=== PATIENT | female | born 1970 | race Caucasian/White ===

== ENCOUNTER 2016-09-10 09:02 | Emergency (ER) | payer BC, OTHER ==
[~2016-09-10] VITALS: Ht 162.6 cm; Wt 68.0 kg
[~2016-09-10 09:02] MED LIST: ASPI-266 PO; FAMO20TA5 PO; HYDR-3720 PO; IBP800T PO; METO-272 PO; OMEP20TA2 PO
--- OUTSIDE RECORDS SUMMARY | 2016-09-10 09:09 | XMS REPORT | Continuity of Care Document ---
Author Author [facility] Organization [facility] Address Unknown Phone Unavailable Allergies Active Description Code Type Severity Reaction Onset Reported/Identified Relationship to Patient Clinical Status Yes No Known Drug Allergies [id number] Drug Allergy Mild N/A 10/20/2009 Medications Problems Date Dx Coded Attending Type Code Diagnosis Diagnosed By 10/20/2009 Ot 300.00 10/20/2009 Ot 786.01 06/07/2014 ROM MCGRATH, RODRIGO A Ot 626.8 06/07/2014 ROM MCGRATH, RODRIGO A Ot 793.5 06/07/2014 ROM MCGRATH, RODRIGO A Ot V76.12 06/07/2014 ROM MCGRATH, RODRIGO A Ot 626.8 06/07/2014 ROM MCGRATH, RODRIGO A Ot V76.12 06/07/2014 ROM MCGRATH, RODRIGO A Ot 793.89 06/27/2014 ROM MCGRATH, RODRIGO A Ot 626.8 06/27/2014 ROM MCGRATH, RODRIGO A Ot 793.5 06/27/2014 ROM MCGRATH, RODRIGO A Ot V76.12 11/11/2014 AIDAN MCGRATH, ALEX T Ot 305.1 11/11/2014 AIDAN MCGRATH, ALEX T Ot 782.0 11/11/2014 AIDAN MCGRATH, ALEX T Ot 786.50 01/05/2015 ROM MCGRATH, RODRIGO A Ot 626.8 01/05/2015 ROM MCGRATH, RODRIGO A Ot 793.5 01/05/2015 ROM MCGRATH, RODRIGO A Ot V76.12 01/05/2015 ROM MCGRATH, RODRIGO A Ot 626.8 01/05/2015 ROM MCGRATH, RODRIGO A Ot V76.12 01/05/2015 ROM MCGRATH, RODRIGO Ibarra Ot 793.89 Procedures Results Encounters ACCT No. Visit Date/Time Discharge Status Pt. Type Provider Facility Loc./Unit Complaint [id number] 11/11/2014 08:33:00 2014 09:53:00 DIS Emergency AIDAN MCGRATH, ALEX Bolanos [facility] ER [id number] 03/08/2014 07:36:00 2013 23:59:59 CLS Outpatient RODRIGO CUETO MD [facility] RAD [id number] 02/15/2014 13:47:00 2013 23:59:59 CLS Outpatient RODRIGO CUETO MD [facility] RAD [id number] 02/15/2014 13:14:00 2013 23:59:59 CLS Outpatient RODRIGO CUETO MD [facility] RAD [id number] 06/07/2014 15:42:00 Document Registration [id number] 10/20/2009 22:14:00 Document Registration
[2016-09-10] MEDS ORDERED: BUSP15TA60 (09:21)
[2016-09-10 10:20] LABS: BASOPHILS % (AUTO) 0 % (0-10); EOSINOPHILS # (AUTO) 0.1 10^3/uL (0.0-0.3); EOSINOPHILS % (AUTO) 3 % (0-10); LYMPHOCYTES # (AUTO) 1.6 X 10^3 (1.0-4.0); LYMPHOCYTES % (AUTO) 30 % (12-44); MEAN CORPUSCULAR HEMOGLOBIN 33 PG (25-34); MEAN CORPUSCULAR HGB CONC 35 G/DL (32-36); MEAN CORPUSCULAR VOLUME 95 FL (80-99); MEAN PLATELET VOLUME 9.8 FL (7.4-10.4); MONOCYTES # (AUTO) 0.5 X 10^3 (0.0-1.0); MONOCYTES % (AUTO) 9 % (0-12); NEUTROPHILS # (AUTO) 3.1 X 10^3 (1.8-7.8); NEUTROPHILS % (AUTO) 58 % (42-75); PLATELET COUNT 230 10^3/uL (130-400); RED BLOOD COUNT 4.13 10^6/uL (4.35-5.85); RED CELL DISTRIBUTION WIDTH 12.6 % (10.0-14.5); WHITE BLOOD COUNT 5.3 10^3/uL (4.3-11.0)
[2016-09-10 10:23] LABS: PROTHROMBIN TIME PATIENT 13.1 SEC (12.2-14.7)
[2016-09-10 10:42] LABS: ALANINE AMINOTRANSFERASE 19 U/L (0-55); ANION GAP 8 MMOL/L (5-14); ASPARTATE AMINO TRANSFERASE 22 U/L (5-34); BILIRUBIN,TOTAL 0.4 MG/DL (0.1-1.0); CALCIUM 8.9 MG/DL (8.5-10.1); CARBON DIOXIDE 23 MMOL/L (21-32); CHLORIDE 106 MMOL/L (98-107); CREATININE SERUM 0.72 MG/DL (0.60-1.30); GFR ESTIMATED > 60; GLUCOSE 96 MG/DL (70-105); POTASSIUM 4.3 MMOL/L (3.6-5.0); SODIUM 137 MMOL/L (135-145); TOTAL PROTEIN 6.6 G/DL (6.4-8.2)
[2016-09-10 11:17] LABS: BLOOD UREA NITROGEN 16 MG/DL (7-18); BUN/CREATININE RATIO 22
--- NOTE | 2016-09-10 11:55 | ED GI ---
General Chief Complaint: Rect Problems Stated Complaint: RECTAL BLEEDING Nursing Triage Note: AMBULATED TO ROOM 08 WITH COMPLAINTS OF RECTAL BLEED. STATES IT STARTED YESTERDAY AND IT IS NOT WITH BM'S. DENIES ABD PAIN. Sepsis Screen: No Definite Risk Source of Information: Patient Exam Limitations: No Limitations History of Present Illness Time Seen By Provider: 10:28 Initial Comments This 46-year-old woman presents to the emergency room with complaints of jason rectal bleeding that started yesterday. She has had bleeding independent of stools. The blood is been bright red. She denies any prior episodes. She denies any abdominal pain. She uses no blood thinning medications, but does take ibuprofen. No nausea, vomiting, diarrhea, or constipation. She has no knowledge of hemorrhoids but does have an anal skin flap secondary to trauma and repair. She reports being under increased stress recently and reports losing her in May. Allergies and Home Medications Allergies Coded Allergies: latex (Verified Allergy, Unknown, 09/10/16) shellfish derived (Verified Allergy, Unknown, 09/10/16) Home Medications Buspirone HCl 15 Mg Tablet #45 (Reported) Ibuprofen 800 Mg Tab 800 MG PO QID PRN PRN PAIN (Reported) Review of Systems Constitutional: no symptoms reported EENTM: No Symptoms Reported Respiratory: No Symptoms Reported Cardiovascular: No Symptoms Reported Gastrointestinal: See HPI Genitourinary: No Symptoms Reported Musculoskeletal: no symptoms reported Skin: no symptoms reported Psychiatric/Neurological: No Symptoms Reported Endocrine: No Symptoms Reported Hematologic/Lymphatic: See HPI Past Hqdyhla-Rqjpek-Tloabr Hx Patient Social History Alcohol Use: Denies Use Recreational Drug Use: No Smoking Status: Current Everyday Smoker Recent Foreign Travel: No Contact w/Someone Who Travel: No Recent Infectious Disease Expo: No Recent Hopitalizations: No Seasonal Allergies Seasonal Allergies: No Surgeries HX Surgeries: Yes (HERNIA, parineal repair for child trauma) Surgeries: Gallbladder, Lumpectomy, Orthopedic, Tubal Ligation Respiratory Hx Respiratory Disorders: No Cardiovascular Hx Cardiac Disorders: No Neurological Hx Neurological Disorders: No Reproductive System Hx Reproductive Disorders: No Genitourinary Hx Genitourinary Disorders: No Gastrointestinal Hx Gastrointestinal Disorders: Yes Gastrointestinal Disorders: Ulcer Musculoskeletal Hx Musculoskeletal Disorders: No Endocrine Hx Endocrine Disorders: No HEENT HX ENT Disorders: No Cancer Hx Cancer: No Psychosocial Hx Psychiatric Problems: Yes Behavioral Health Disorders: Anxiety Family Medical History Significant Family History: CAD Under 55 Years Old, Stroke Physical Exam Vital Signs VS - Last 72 Hours, by Label 09/10/16 09/10/16 09:08 12:00 Temp 97.8 Pulse 71 77 Resp 16 16 B/P 173/72 Pulse Ox 98 98 Capillary Refill : Less Than 3 Seconds General Appearance: WD/WN no apparent distress HEENT: PERRL/EOMI normal ENT inspection Neck: normal inspection Respiratory: lungs clear normal breath sounds no respiratory distress no accessory muscle use Cardiovascular: regular rate, rhythm no edema no murmur Gastrointestinal: normal bowel sounds non tender soft Genital/Rectal: other (small amount of dark red blood at the rectum without active bleeding. Skin flap noted without any obvious hemorrhoids. 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 no motor/sensory deficits alert normal mood/affect oriented x 3 Skin: normal color warm/dry Focused Exam Lactic Acid Level Laboratory Tests Test 09/10/16 09:45 Alanine Aminotransferase (ALT/SGPT) 19U/L (0-55) Albumin 4.0G/DL (3.2-4.5) Alkaline Phosphatase 54U/L (40-136) Anion Gap 8MMOL/L (5-14) Aspartate Amino Transf (AST/SGOT) 22U/L (5-34) BUN/Creatinine Ratio 22 Blood Urea Nitrogen 16MG/DL (7-18) Calcium Level 8.9MG/DL (8.5-10.1) Carbon Dioxide Level 23MMOL/L (21-32) Chloride Level 106MMOL/L (98-107) Creatinine 0.72MG/DL (0.60-1.30) Estimat Glomerular Filtration Rate > 60 Glucose Level 96MG/DL (70-105) Potassium Level 4.3MMOL/L (3.6-5.0) Sodium Level 137MMOL/L (135-145) Total Bilirubin 0.4MG/DL (0.1-1.0) Total Protein 6.6G/DL (6.4-8.2) Progress/Results/Core Measures Results/Orders Lab Results Laboratory Tests Test 09/10/16 09:45 Range/Units Activated Partial Thromboplast Time 28 24-35 SEC Alanine Aminotransferase (ALT/SGPT) 19 0-55 U/L Albumin 4.0 3.2-4.5 G/DL Alkaline Phosphatase 54 40-136 U/L Anion Gap 8 5-14 MMOL/L Aspartate Amino Transf (AST/SGOT) 22 5-34 U/L BUN/Creatinine Ratio 22 Basophils # (Auto) 0.0 0.0-0.1 10^3/uL Basophils (%) (Auto) 0 0-10 % Blood Urea Nitrogen 16 7-18 MG/DL Calcium Level 8.9 8.5-10.1 MG/DL Carbon Dioxide Level 23 21-32 MMOL/L Chloride Level 106 98-107 MMOL/L Creatinine 0.72 0.60-1.30 MG/DL Eosinophils # (Auto) 0.1 0.0-0.3 10^3/uL Eosinophils (%) (Auto) 3 0-10 % Estimat Glomerular Filtration Rate > 60 Glucose Level 96 70-105 MG/DL Hematocrit 39 35-52 % Hemoglobin 13.7 11.5-16.0 G/DL INR Comment 1.0 0.8-1.4 Lymphocytes # (Auto) 1.6 1.0-4.0 X 10^3 Lymphocytes (%) (Auto) 30 12-44 % Mean Corpuscular Hemoglobin 33 25-34 PG Mean Corpuscular Hemoglobin Concent 35 32-36 G/DL Mean Corpuscular Volume 95 80-99 FL Mean Platelet Volume 9.8 7.4-10.4 FL Monocytes # (Auto) 0.5 0.0-1.0 X 10^3 Monocytes (%) (Auto) 9 0-12 % Neutrophils # (Auto) 3.1 1.8-7.8 X 10^3 Neutrophils (%) (Auto) 58 42-75 % Platelet Count 230 130-400 10^3/uL Potassium Level 4.3 3.6-5.0 MMOL/L Prothrombin Time 13.1 12.2-14.7 SEC Red Blood Count 4.13 L 4.35-5.85 10^6/uL Red Cell Distribution Width 12.6 10.0-14.5 % Sodium Level 137 135-145 MMOL/L Total Bilirubin 0.4 0.1-1.0 MG/DL Total Protein 6.6 6.4-8.2 G/DL White Blood Count 5.3 4.3-11.0 10^3/uL My Orders Orders-ALEX BERMUDEZ MD Cbc With Automated Diff (09/10/16 10:10) Comprehensive Metabolic Panel (09/10/16 10:10) Protime With Inr (09/10/16 10:10) Partial Thromboplastin Time (09/10/16 10:10) Saline Lock/Iv-Start (09/10/16 10:10) Fecal Occult Bedside (09/10/16 10:10) Vital Signs/I&O Vital Sign - Last 12Hours 09/10/16 09/10/16 09:08 12:00 Temp 97.8 Pulse 71 77 Resp 16 16 B/P 173/72 Pulse Ox 98 98 Blood Pressure Mean: 105 Point of Care Testing Fecal Occult: Negative Progress Note : Progress Note Workup was unremarkable. There is no evidence of active bleeding during the ER visit. Patient was ultimately discharged home for outpatient follow-up and endoscopy. Departure Impression Impression: Primary Impression: Rectal bleeding Disposition: 01 HOME, SELF-CARE Condition: Stable Departure-Patient Inst. Decision time for Depature: 11:30 Referrals: REID BECKER MD (PCP/Family) Primary Care Physician FRANCES MATA BRETT D DO JENKINS, XAVIER M MD KIDO, TAKAAKI MD Patient Instructions: Gastrointestinal Bleeding Add. Discharge Instructions: Follow-up with Dr. Becker as soon as possible to seek referral to a surgeon or word processor operator for endoscopy. Return to care if symptoms worsen. Avoid use of ibuprofen or other blood thinning medication such as aspirin until otherwise instructed. All discharge instructions reviewed with patient and/or family. Voiced understanding. Copy Copies To 1: REID BECKER MD, JOSHUA T MD Sep 10, 2016 11:55
[2016-09-10 12:00] VITALS: BP 132/87
== END 2016-09-10 12:00 | disposition home or self-care (01) ==
LOC: EDUNIT# 09:02 → ER 09:06
DX: K62.5 Hemorrhage of anus and rectum (principal); F17.210 Nicotine dependence, cigarettes, uncomplicated
CPT/HCPCS: 36415; 80053; 85025; 85610; 85730

== ENCOUNTER 2017-03-08 07:41 | Emergency (ER) | payer SELFPAY ==
[~2017-03-08] VITALS: Ht 165.1 cm; Wt 76.2 kg
[~2017-03-08 07:41] MED LIST changes: +BUSP15TA60
[2017-03-08] MEDS ORDERED: morphine INJ 10 MG/ML 1ML (SYR OR VIAL) IM STA (08:46)
[2017-03-08] MEDS ORDERED: KETOROLAC 60 MG/2 ML VIAL IM STA (08:46)
[2017-03-08] MEDS ORDERED: HYDR-87 PO (08:52)
--- NOTE | 2017-03-08 08:52 | ED Lower Extremity ---
General Chief Complaint: Lower Extremity Stated Complaint: L LEG PAIN FROM FALL Nursing Triage Note: c/o pain to left lower leg/ankle. Pt fell off a porch around midnight. Nursing Sepsis Screen: No Definite Risk Source: patient History of Present Illness Time seen by provider: 08:10 Initial Comments PT ARRIVES VIA POV FROM HOME STATES THAT AROUND MIDNIGHT SHE FELL APPROXIMATELY 3 FEET OFF PORCH--SLIPPED ON ACORNS AND FELL, LANDING ON LEFT LEG. DENIES HAVING ANY ALCOHOL LAST PM C/O PAIN TO LEFT ANKLE/LOWER LEG AND ALSO TO LATERAL ASPECT OF LOWER LEG, BELOW KNEE. NO PARESTHESIAS OR MOTOR DEFICITS NO NECK OR BACK PAIN DID NOT HIT HEAD AND NO LOSS OF CONSCIOUSNESS NO OTHER INJURIES NO PRIOR INJURY TO THIS LEG OR ANKLE HAS NOT BEEN ABLE TO BEAR WEIGHT ON LEFT LEG HAS NOT TAKEN ANYTHING FOR PAIN PCP: MAGALI TORRES Allergies and Home Medications Allergies Coded Allergies: Penicillins (Verified Allergy, Unknown, 03/08/17) latex (Verified Allergy, Unknown, 09/10/16) shellfish derived (Verified Allergy, Unknown, 09/10/16) Home Medications Hydrocodone/Ibuprofen 1 Each Tablet, 1-2 EACH PO Q4H, #20 Prescribed by: ETTA WHEAT on 03/08/17 0852 Ibuprofen 800 Mg Tab, 800 MG PO QID PRN for PAIN, (Reported) Constitutional: no symptoms reported EENTM: no symptoms reported Respiratory: no symptoms reported Cardiovascular: no symptoms reported Gastrointestinal: no symptoms reported Genitourinary: no symptoms reported Musculoskeletal: see HPI, No back pain, No other Skin: no symptoms reported Psychiatric/Neurological: No Symptoms Reported Past Zwtauhf-Plgjuj-Tiftbo Hx Patient Social History Alcohol Use: Occasionally Uses Recreational Drug Use: No Smoking Status: Current Everyday Smoker (2 PPD) Type Used: Cigarettes Recent Foreign Travel: No Contact w/Someone Who Travel: No Recent Infectious Disease Expo: No Recent Hopitalizations: No Seasonal Allergies Seasonal Allergies: No Surgeries History of Surgeries: Yes (HERNIA, PERINEAL REPAIR FROM CHILDBIRTH) Surgeries: Abdominal, Gallbladder, Lumpectomy, Tubal Ligation Respiratory History of Respiratory Disorde: No Cardiovascular History of Cardiac Disorders: No Neurological History of Neurological Disord: No Reproductive System Hx Reproductive Disorders: No TRADE ANALYST History: Tubal Ligation Genitourinary History of Genitourinary Disor: No Gastrointestinal History of Gastrointestinal Di: Yes Gastrointestinal Disorders: Gastroesophageal Reflux, Ulcer Musculoskeletal History of Musculoskeletal Dis: No Endocrine History of Endocrine Disorders: No HEENT History of HEENT Disorders: No Cancer History of Cancer: No Psychosocial History of Psychiatric Problem: Yes Behavioral Health Disorders: Anxiety Integumentary History of Skin or Integumenta: No Blood Transfusions History of Blood Disorders: No Family Medical History Significant Family History: CAD Under 55 Years Old, Stroke Physical Exam Vital Signs Vital Sign - Last 12Hours 03/08/17 08:09 Temp 98.1 Pulse 87 Resp 16 B/P (MAP) 141/91 Pulse Ox 98 O2 Delivery Room Air Capillary Refill : Less Than 3 Seconds General Appearance: WD/WN, other (ANXIOUS) HEENT: PERRL/EOMI Neck: non-tender, normal inspection Cardiovascular: normal peripheral pulses, regular rate, rhythm, no murmur Respiratory: chest non-tender, normal breath sounds Gastrointestinal: non tender, soft Back: normal inspection, no CVA tenderness, no vertebral tenderness Hips: bilateral hip non-tender, bilateral hip normal inspection, bilateral hip normal range of motion, bilateral hip no evidence of injury Legs: right leg normal inspection, left leg bone tenderness, left leg limited range of motion, left leg pain, left leg soft tissue tenderness, left leg swelling, left leg other (TENDERNESS AND MODERATE SWELLING TO LEFT PROXIMAL FIBULA AREA, AND LOWER LEG AND ANKLE. ROM VERY LIMITED DUE TO PAIN, BUT DISTAL MOTOR/SENSORY/VASCULAR INTACT. UNABLE TO BEAR WEIGHT ON LEFT LEG. 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, no motor/sensory deficits, alert, oriented x 3 Skin: normal color, warm/dry Splinting and Joint Reduction : Pre-Proc Neuro Vasc Exam: normal Post-Proc Neuro Vasc Exam: normal Ordered: Crutches Hand-Made Type: orthoglass Splint Application: Long Leg Progress/Results/Core Measures Results/Orders My Orders Orders - ETTA WHEAT DO Tibia/Fibula, Left, 2 Views (03/08/17 08:13) Ankle, Left, 3 Views (03/08/17 08:13) Splint Application Long Lec (03/08/17 08:46) Crutches (03/08/17 08:46) Ed Ortho Supplies Order (03/08/17 08:46) Ketorolac Injection (Toradol Injection) (03/08/17 08:46) Morphine Injection (Morphine Injection (03/08/17 08:46) Vital Signs/I&O Vital Sign - Last 12Hours 03/08/17 03/08/17 03/08/17 08:09 08:56 08:56 Temp 98.1 98.1 98.1 Pulse 87 Resp 16 B/P (MAP) 141/91 Pulse Ox 98 O2 Delivery Room Air Blood Pressure Mean: 108 Progress Note : Progress Note PAIN MUCH IMPROVED AT DISMISSAL Diagnostic Imaging Comments XRAYS LEFT TIB-FIB AND ANKLE--FX PROXIMAL FIBULA AND POSTERIOR MALLEOLUS OF TIBIA--PER RADIOLOGIST REPORT @ 0903 Reviewed: Reviewed by Me Departure Impression Impression: Primary Impression: Closed left fibular fracture Additional Impressions: Closed left ankle fracture Closed left tibial fracture Disposition: 01 HOME, SELF-CARE Condition: Stable Departure-Patient Inst. Referrals: REID BECKER MD (PCP/Family) Primary Care Physician ORTHO 4 STATES Patient Instructions: Ankle Fracture (DC), Fibula Fracture (DC), Going Up and Down Curbs or Stairs With a Walker or Crutches, How to Use Crutches, SPLINT CARE Add. Discharge Instructions: ICE TO AREA AT 20 MINUTE INTERVALS SPLINT AND USE CRUTCHES AT ALL TIMES--NO WEIGHT BEARING ELEVATE LEG MUCH POSSIBLE FOLLOW UP WITH ORTHO 4 STATES IN 1-2 DAYS FOR FURTHER CARE All discharge instructions reviewed with patient and/or family. Voiced understanding. Scripts Hydrocodone/Ibuprofen (Hydrocodone-Ibuprofen 7.5-200) 1 Each Tablet 1-2 EACH PO Q4H for Pain, #20 TAB Prov: ETTA WHEAT DO 03/08/17 ETTA WHEAT DO Mar 08, 2017 08:52
--- NOTE | 2017-03-08 08:55 | Diagnostic Imaging Report ---
INDICATION: Fall. FINDINGS: Left tibia and fibula show oblique fracture nondisplaced along the proximal shaft of the fibula. There is also a nondisplaced posterior malleolar fracture of the distal tibia. The tibial plateau appears intact. IMPRESSION: 1. Nondisplaced fracture in oblique fashion of the proximal fibular shaft. 2. Nondisplaced posterior malleolar fracture of the tibia. Dictated by: Dictated on workstation # [id number]
--- NOTE | 2017-03-08 08:58 | Diagnostic Imaging Report ---
INDICATION: Fall. FINDINGS: Ankle mortise is in good alignment. Articulating surfaces are smooth. There is a nondisplaced fracture of the posterior malleolus of the tibia. The medial and lateral malleolus appear intact. The talar plafond is smooth and appears normal. IMPRESSION: Nondisplaced posterior malleolar fracture of the distal tibia. Dictated by: Dictated on workstation # [id number]
[2017-03-08 09:51] VITALS: BP 138/90
== END 2017-03-08 09:51 | disposition home or self-care (01) ==
LOC: EDUNIT# 07:41 → ER 07:43
DX: S82.892A Other fracture of left lower leg, initial encounter for closed fracture (principal); S82.832A Other fracture of upper and lower end of left fibula, initial encounter for closed fracture; K21.9 Gastro-esophageal reflux disease without esophagitis; F41.9 Anxiety disorder, unspecified; F17.210 Nicotine dependence, cigarettes, uncomplicated; Z98.51 Tubal ligation status; Z82.49 Family history of ischemic heart disease and other diseases of the circulatory system; Z87.19 Personal history of other diseases of the digestive system; W17.89XA Other fall from one level to another, initial encounter; Y92.008 Other place in unspecified non-institutional (private) residence as the place of occurrence of the external cause
CPT/HCPCS: 29505; 73590; 73610; 96372